=== PATIENT | male | born 1980 | race Hispanic/Latino ===

== ENCOUNTER → 2017-10-07 09:05 | Outpatient (CLI) | payer OTHER, SELFPAY ==
[2017-10-07 10:22] LABS: Cholesterol 159 mg/dL (200); Glucose 98 mg/dL (74-106); High Density Lipoprotein 73 mg/dL; Triglycerides 44 mg/dL; Very Low Density Lipoprotein 9 mg/dL (5-40)
== END ==
PROVIDERS: Family Provider Family Medicine; PCP Family Medicine; Visit Provider Family Medicine
DX: Z13.220 Encounter for screening for lipoid disorders (principal); Z13.1 Encounter for screening for diabetes mellitus
CPT/HCPCS: 36415; 80061; 82947

== ENCOUNTER → 2017-10-12 07:53 | Outpatient (CLI) | payer OTHER, SELFPAY ==
--- NOTE | 2017-10-12 07:56 | US_ITS ---
STUDY: SUPERFICIAL ULTRASOUND - RIGHT CERVICAL REGION. REASON FOR EXAM: Male, 37 years old. There is a palpable mass in the right side of the neck. TECHNIQUE: A superficial ultrasound was performed with real-time and static bob-scale imaging. COMPARISON: None. FINDINGS: The palpable abnormality corresponds to a 2.5 cm x 2.6 cm x 1.9 cm soft tissue mass in the right submandibular region. A biopsy is recommended for further evaluation. Adjacent to this, there is an 8 mm x 3 mm well-defined lymph node. US/Head/Neck Soft Tissue IMPRESSION: There is a 2.5 cm x 2.6 cm x 1.9 cm hypoechoic solid mass in the submandibular region of the neck corresponded to the patient's palpable abnormality. A biopsy recommended.. Electronically Signed: Varghese Llamas MD at 12:03 EST Tel [phone], Service support ,
== END ==
PROVIDERS: Family Provider Family Medicine; PCP Family Medicine; Visit Provider Family Medicine
DX: R59.0 Localized enlarged lymph nodes (principal)
CPT/HCPCS: 76536

== ENCOUNTER → 2017-10-31 08:56 | Outpatient (CLI) | payer OTHER, SELFPAY ==
--- NOTE | 2017-10-31 | ASPOS_PTH ---
PATIENT: JUMA JACOBSON LOC: [facility] U#:[id number] AGE/SX: 45/M ROOM: RE10/31/[address]: Kelton Bedoya MD : 1980 BED: DIS: SPEC #: [id number] RECD: 10/31/17 11:33 STATUS: SPEEDY REAlireza #: [id number] DAYNA: 10/31/17 00:[address]: Kelton Bedoya DEPT: CYTOLOGY RECD BY: Jim Emmanuel ENTERED: 10/31/17 11:35 SP TYPE: ASP HERE OTHR DR: Dr. 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 AM:viviane 11/01/17 COMMENT The specimen is evaluated at the time of FNA by Dr. Lebron. 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 CYTOLOGY STUDY Slides are reviewed. CYTOLOGY GROSS Received is 0.1 ml of reddish fluid labeled with the patient's name, and designated right submandibular mass. Four imprints and two paps are made from the submitted fluid and the rest is added to [employer]to[employer] for cell block preparation. Submitted for cytology study. / AM:viviane 10/31/17 TC:1 CPT: 79789, 53787, 14350, 11816
== END ==
PROVIDERS: Family Provider Family Medicine; PCP Family Medicine; Visit Provider Otolaryngology Otolaryngology/Facial Plastic Surgery
DX: R22.0 Localized swelling, mass and lump, head (principal)
CPT/HCPCS: 10021; 88161; 88305; 88313

== ENCOUNTER → 2017-12-12 15:59 | Outpatient (CLI) | payer OTHER, SELFPAY ==
--- NOTE | 2017-12-12 10:30 | SUBM_PTH ---
PATIENT: JUMA JACOBSON LOC: [facility] U#:[id number] AGE/SX: 45/M ROOM: RE12/12/[address]: Dr. Andrew Asencio MD : 1980 BED: DIS: SPEC #: [id number] RECD: 12/12/17 15:08 STATUS: SPEEDY JOANNA #: [id number] DAYNA: 12/12/17 10:[address]: Andrew Asencio DEPT: SURGICAL PATHOLOGY RECD BY: Becky Barron ENTERED: 12/12/17 16:25 SP TYPE: SUBMAN GL OTHR DR: Dr. 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 Case has been reviewed in consultation with Dr. Cuevas who concurs with the above diagnosis. IDC:MARY MICROSCOPIC DESCRIPTION Slides are reviewed. GROSS DESCRIPTION Received is one container labeled with the patient's name and not further designated. The specimen consists of a piece of glandular tissue measuring 7 x 3 x 3 cm and weighing 20.4 gm. The external surface is inked black. Serial sections reveal a chris, solid mass at one edge of the specimen measuring 2.5 x 2 x 1.5 cm. No additional mass lesion is identified. Diesel Pile Hammer Operator sections are submitted in eight cassettes as follows: 1-6 ? entire tumor and adjacent tissue, 7 & 8 ? business office representative sections from the other area. / MARY:viviane 12/12/17 TC:1 CPT: 73887
== END ==
PROVIDERS: Family Provider Family Medicine; PCP Family Medicine; Visit Provider Otolaryngology
DX: K11.8 Other diseases of salivary glands (principal)
CPT/HCPCS: 88307